=== PATIENT | female | born 1950 | race Caucasian/White ===

== ENCOUNTER 2024-05-13 07:37 | Day surgery (SDC) | payer MEDICARE, BC, SELFPAY ==
[2024-05-07 14:43] VITALS: BMI 25.7
[2024-05-13 08:36] VITALS: BP 108/46; PULSE 67; RESP 18; TEMP 36.5; O2SAT 94
[2024-05-13] MEDS: LACTATED RINGERS 1000ML 1,000 ML 25 ML IV (08:47)
--- NOTE | 2024-05-13 08:55 | P.PNANES_ITS ---
[facility] Disclaimer: The information contained in this section may have been updated after the patient was seen, as this information can be updated by other users. Medical History (Updated 05/13/24 @ 08:40 by Cora Castillo RN) Hyperlipidemia Hypertension History of tremor No significant past medical history Surgical History (Updated 05/13/24 @ 08:40 by Cora Castillo RN) History of surgery S/P removal of lung Family History Other No significant family history Social History (Updated 05/13/24 @ 08:40 by Cora Castillo RN) Smoking Status: Current every day smoker alcohol intake: never substance use type: other current occupational status: employed Travel in the last 8 weeks: None caffeine: Yes [facility] Anesthesia Checklist Patient Identification Patient Identification: Arm Band Structural Data Admitted From: Home Planned Operative Procedure/s: Colonoscopy Consent for Planned Operative Procedure(s) Verified: Yes Verified Documents: Surgical Consent and History and Physical NPO Status Verified Time NPO: 00:00 Additional verifications Anesthesia Reactions: No Hx Blood Transfusions: No Blood Transfusion Reaction: No Airway Assessment Mallampati Score:: Class II C-Spine Mobility Assessed: Yes TMJ Mobility Assessed: Yes Dentition: Good Dentition Neurological Assessment Level of Consciousness: Awake, Alert and Appropriate Anesthesia Plan Anesthesia Risk discussed: Yes Anesthesia Plan: Verified ASA Class: III Anesthesia Type: MAC
[2024-05-13 08:56] VITALS: O2SAT 100
--- NOTE | 2024-05-13 08:59 | EXP.HP ---
History of Present Illness *Admission Date: 05/13/24 *Reason for visit:: Personal history of adenomatous colon polyps *History of present illness: Mrs. Charles is a 73-year-old female who is here for surveillance colonoscopy secondary to a personal history of adenomatous polyps. She has had multiple adenomatous polyps removed in the past (July 2009 3 polyps (tubular adenomas x 3) removed, October 2013 3 polyps (tubular adenomas x 3) removed and January 2019 1 polyp (tubular adenoma x 1) removed)).. The examination is deemed medically necessary for colonoscopy. The patient has been seen, interviewed and examined prior to the procedure by both myself and the anesthesia provider. [facility] Disclaimer: The information contained in this section may have been updated after the patient was seen, as this information can be updated by other users. Medical History (Updated 05/13/24 @ 09:03 by Kem Tapia II, MD) Hyperlipidemia Hypertension History of tremor No significant past medical history Surgical History (Updated 05/13/24 @ 08:40 by Cora Castillo RN) History of surgery S/P removal of lung Family History Other No significant family history Social History (Updated 05/13/24 @ 08:40 by Cora Castillo RN) Smoking Status: Current every day smoker alcohol intake: never substance use type: other current occupational status: employed Travel in the last 8 weeks: None caffeine: Yes Other Medical History Have you received the Flu Vaccine for this season: No Have you received the Pneumonia Vaccine: No Review of Systems Review of Systems Review of systems (narrative): Negative *Cardiovascular Comments: Negative *Gastrointestinal Comments: Negative *Genitourinary Comments: Negative *Musculoskeletal Comments: Negative *Neurologic Comments: Negative Meds Home Medications and Allergies Home Medications ?Medication ?Instructions ?Recorded ?Confirmed ?Type clopidogrel 75 mg tablet (Plavix) 75 mg PO DAILY STENT 01/29/19 05/13/24 History lisinopril 20 mg tablet 20 mg PO DAILY BP 01/29/19 05/13/24 History metoprolol succinate 25 mg 25 mg PO DAILY BP 01/29/19 05/13/24 History tablet,extended release 24 hr atorvastatin 20 mg tablet 20 mg PO HS High cholesterol 02/01/19 05/13/24 History sodium sul 1.479 gram-potas ch See Rx Instructions PO PER PKG DIR 05/01/24 05/13/24 Rx 0.188 gram-magnes sul 0.225 gram colonscopy #24 tabs tablet (Sutab) sodium,potassium,mag sulfates 17.5 See Rx Instructions PO .COMPLEX 05/02/24 05/13/24 Rx gram-3.13 gram-1.6 gram oral soln #354 mL (Suprep Bowel Prep Kit) aspirin 81 mg capsule 81 mg PO DAILY 05/13/24 05/13/24 History levetiracetam 250 mg tablet 250 mg PO BID 05/13/24 05/13/24 History New Prescriptions to Start Prescriptions: Allergies Allergy/AdvReac Type Severity Reaction Status Date / Time cephalexin (From Keflex) Allergy Unknown Verified 05/13/24 08:28 allergy reaction sulfamethoxazole (From Allergy Unknown Verified 05/13/24 08:30 Bactrim) allergy reaction trimethoprim (From Bactrim) Allergy Unknown Verified 05/13/24 08:30 allergy reaction Exam Data for Last 24 hours Vital signs and Labs for Last 24 Hours: Temp Pulse Resp BP Pulse Ox O2 Del Method O2 Flow Rate 97.7 F 67 18 108/46 L 94 L Nasal Cannula 5 05/13/24 08:36 05/13/24 08:36 05/13/24 08:36 05/13/24 08:36 05/13/24 08:36 05/13/24 08:56 05/13/24 08:56 *Routine HEENT Exam Head: Present normocephalic Eye: Present EOMI and PERRL ENT: Present mucous membranes moist *Routine Neck Exam Neck: Present supple *Routine Respiratory Exam Respiratory: Present CTA bilaterally *Routine Cardiovascular Exam Cardiovascular: Present RRR *Routine Abdominal Exam Abdominal: Present soft and normoactive bowel sounds; Absent tenderness *Routine Rectal Exam Rectal:: deferred *Routine Genitalia Exam Genitalia:: deferred *Routine Extremities Exam Extremities: Absent cyanosis, clubbing or edema *Routine Skin Exam Skin: Present warm; Absent rash *Routine Neurological Exam Neurological: Present alert and oriented X3 Assessment and Plan *Assessment and plan (1) Personal history of adenomatous and serrated colon polyps: Status: Acute Category: Medical Code(s): Z86.0101 - Personal history of adenomatous and serrated colon polyps Plan A/P: 1. Personal history of adenomatous colon polyps is the preprocedural diagnosis. The patient will be anesthetized/sedated using MAC sedation. The patient has been seen and examined. Cardiac and lung assessment prior to the examination is stable. Proceed with planned colonoscopy
--- NOTE | 2024-05-13 09:03 | P.PCN_ITS ---
[facility] Procedure Note Date: 05/13/24 Time: 09:20 Procedure Note:: Colonoscopy Procedure Report: Colonoscopy with cold snare polypectomy Endoscopist: Kem Tapia II, MD Referring physician: Calos Chavis MD Date of Procedure: May 13, 2024 Equipment: Olympus 190 variable stiffness pediatric colonoscope Sedation: MAC sedation Indication: Mrs. Charles is a 73-year-old female with a personal history of adenomatous colon polyps. Her colonoscopy in July 2009 revealed 3 polyps (tubular adenoma x 3) which were removed. Her colonoscopy in October 2013 revealed 3 polyps (tubular adenomas x 3) which were removed. Her last colonoscopy was January 2019 at which time she had a single polyp (tubular adenoma x 1) which was removed. She reports no abdominal pain, weight loss, change in her bowel habits or rectal bleeding. She reports no family history of colon cancer. Procedure: Prior to the procedure, a history and physical exam was performed, and patient's medications and allergies were reviewed. The risks, benefits and alternatives of the sedation and procedure were discussed with the patient. All questions were answered and informed consent was obtained. The patient was brought to the procedure room. Patient identification and proposed procedure were verified by the physician and the nurse. The patient was placed in a left lateral decubitus position and the scope was passed under direct vision. Throughout the procedure, the patient's blood pressure, pulse, and oxygen saturations were monitored continuously. The colonoscopy was accomplished without difficulty. The patient tolerated the procedure well. Findings: On digital rectal examination there was normal rectal tone. There were no external hemorrhoids. The colonoscope was introduced through the anal canal to the rectum and advanced to the cecum. The ileocecal valve and appendiceal orifice were identified. The scope was advanced a short distance into the ileum which appeared grossly normal. The scope was then withdrawn into the colon. The cecum, ascending and transverse colon and mucosa were grossly normal. There were scattered diverticuli throughout the descending and sigmoid colon (LEFT colon). There was a diminutive 3 mm rectosigmoid polyp removed via cold snare polypectomy. The rectum itself was normal. Upon retroflexion within the rectum there were grade 1-2 internal hemorrhoids. The preparation was excellent throughout with Langdon Preparation Score of 9. The cecal time was 10 minutes. Impression: 1. Diminutive 3 mm hyperplastic appearing rectosigmoid polyp 2. Left-sided diverticulosis 3. Grade 1-2 internal hemorrhoids Plan: I will follow-up the polyp histology and if the polyp is hyperplastic, she will not likely require any further preventative surveillance. I would encourage psyllium fiber supplementation on a maintenance basis.
[2024-05-13 09:23] VITALS: BP 91/43; PULSE 63; RESP 18; TEMP 36.2; O2SAT 99
[2024-05-13 09:33] VITALS: BP 120/61; PULSE 62; RESP 18; O2SAT 95
[2024-05-13 09:43] VITALS: BP 111/75; PULSE 66; RESP 18; O2SAT 95
[2024-05-13 10:15] VITALS: BP 126/54; PULSE 62; RESP 18; O2SAT 94
== END 2024-05-13 10:15 | disposition home or self-care (01) ==
PROVIDERS: PCP Pediatrics; Visit Provider Internal Medicine Gastroenterology
PROC: (CPT 45385; principal; 2024-05-13 09:00)
DX: K63.5 Polyp of colon (principal); K57.30 Diverticulosis of large intestine without perforation or abscess without bleeding; K64.8 Other hemorrhoids; Z86.0101 Personal history of adenomatous and serrated colon polyps
CPT/HCPCS: 45385; 88305; J7120